=== PATIENT | male | born 1995 | race Native Hawaiian/Other Pacific Islander ===

== ENCOUNTER 2019-03-15 11:18 | Outpatient (CLI) | payer OTHER | END 2019-03-15 22:48 | disposition home or self-care (01) | LOC: LABW 11:18 | DX: R56.9 Unspecified convulsions (principal) | CPT/HCPCS: 36415; 82542 ==

== ENCOUNTER 2019-04-05 13:15 | Outpatient (CLI) | payer OTHER | END 2019-04-05 22:54 | disposition home or self-care (01) | LOC: RESP 13:15 | DX: R56.9 Unspecified convulsions (principal) ==

== ENCOUNTER 2020-01-16 16:03 | Emergency (ER) | payer OTHER ==
[~2020-01-16] VITALS: Ht 180.3 cm; Wt 70.3 kg
[2020-01-16 16:30] LABS: PLATELET COUNT 328 K/uL (142-355)
[2020-01-16 16:32] LABS: POTASSIUM 3.4 mmol/L (3.6-5.2); SODIUM 141 mmol/L (136-145)
[2020-01-16 16:59] LABS: PARTIAL THROMBOPLASTIN TIME 20.5 SECONDS (24.5-33.6)
[2020-01-16 18:04] VITALS: BP 123/65; TEMP 97.6
== END 2020-01-16 18:06 | disposition home or self-care (01) ==
LOC: ED 16:03
PROVIDERS: Hospitalist
DX: R56.9 Unspecified convulsions (principal); G43.909 Migraine, unspecified, not intractable, without status migrainosus; Z79.899 Other long term (current) drug therapy
CPT/HCPCS: 80053; 80307; 80320; 81000; 82550; 83880; 84484; 85027; 85610; 85730; 93005; 96360; 96365; 96375; 99284; J1885; J2405